=== PATIENT | female | born 1970 | race Caucasian/White ===

== ENCOUNTER 2022-09-10 14:00 | Outpatient (RCR) | payer OTHER, SELFPAY | END 2022-09-15 12:44 | disposition home or self-care (01) | LOC: HO.PT 14:00 | PROVIDERS: PCP Internal Medicine; Visit Provider Nurse Practitioner Family | DX: N81.84 Pelvic muscle wasting (principal) | CPT/HCPCS: 97140; 97162; 97535 ==